=== PATIENT | male | born 1960 | race American Indian/Alaskan Native ===

== ENCOUNTER 2016-08-25 09:45 | Emergency (ER) | payer MEDICARE ==
[2016-08-25 11:07] LABS: Hematocrit 32.2 % (35.5-45.6); Hemoglobin 10.2 gm/dl (11.8-15.2); Mean Corpuscular HGB Conc 32 % (32-34); Mean Corpuscular Hemoglobin 31 pg (28-32); Mean Corpuscular Volume 96 fl (84-94); Platelet Count 212 K/mm3 (140-440); Red Blood Count 3.36 M/mm3 (3.65-5.03); Red Cell Distribution Width 14.9 % (13.2-15.2); White Blood Count 3.7 K/mm3 (4.5-11.0)
[2016-08-25 11:16] LABS: Anion Gap 15 mmol/L; Blood Urea Nitrogen 12 mg/dL (9-20); Calcium 9.6 mg/dL (8.4-10.2); Carbon Dioxide 25 mmol/L (22-30); Chloride 106.5 mmol/L (98-107); Glucose 80 mg/dL (75-100); Potassium 4.2 mmol/L (3.6-5.0); Sodium 142 mmol/L (137-145)
--- NOTE | 2016-08-25 11:26 | Emergency Department Report ---
HPI - General Chief Complaint: Nausea/Vomiting/Diarrhea Time Seen by Provider: 08/25/16 11:16 - HPI HPI: This is a 55-year-old -[place] male who presents to the emergency department by EMS from his [facility] with the concern for diarrhea. Patient has about 1 loose stool or episode of diarrhea per day has been going on for a while. The facility is concerned as the patient has a history of C. difficile in the past that was completely treated. He also has a history of a right kidney transplant. 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 He denies any motor deficits. The patient himself denies any abdominal pain, fever, chest pain, back pain, shortness of breath. No recent travel. ED Past Medical Hx - Past Medical History Previous Medical History?: Yes Hx CVA: Yes Hx Renal Disease: Yes (right kidney transplant) - Surgical History Past Surgical History?: Yes Additional Surgical History: right kidney transplant - Social History Smoking Status: Never Smoker Substance Use Type: None - Medications Home Medications: Home Medications Medication Instructions Recorded Confirmed Last Taken Type Unobtainable 08/25/16 08/25/16 Unknown History ED Review of Systems ROS: Stated complaint: DIARRHEA Other details as noted in HPI Comment: All other systems reviewed and negative Constitutional: denies: chills, fever Eyes: denies: eye pain, eye discharge, vision change ENT: denies: ear pain, throat pain Respiratory: denies: cough, shortness of breath, wheezing Cardiovascular: denies: chest pain, palpitations Gastrointestinal: diarrhea. denies: abdominal pain, nausea, vomiting Genitourinary: denies: urgency, dysuria Musculoskeletal: denies: back pain, joint swelling, arthralgia Skin: denies: rash, lesions Neurological: denies: headache, weakness, paresthesias Physical Exam - Physical Exam Vital Signs: Vital Signs 08/25/16 08/25/16 08/25/16 10:28 10:52 10:54 Temperature 98.4 F Pulse Rate 70 79 Respiratory 18 11 L Rate Blood Pressure 136/74 136/84 O2 Sat by Pulse 100 98 100 Oximetry 08/25/16 10:58 Temperature Pulse Rate Respiratory 11 L Rate Blood Pressure O2 Sat by Pulse 100 Oximetry Physical Exam: GENERAL: The patient is well-developed well-nourished. HEENT: Normocephalic. Atraumatic. Extraocular motions are intact. Patient has moist mucous membranes. Pupils equal reactive to light bilaterally. NECK: Supple. Trachea is midline. CHEST/LUNGS: Clear to auscultation. There is no respiratory distress noted. HEART/CARDIOVASCULAR: Regular. There is no tachycardia. There is no gallop rub or murmur. ABDOMEN: Abdomen is soft, nontender. Patient has normal bowel sounds. There is no abdominal distention. SKIN: Warm and dry. NEURO: The patient is awake, alert. The patient is cooperative. The patient has no focal neurologic deficits. Patient has some aphasia and stuttering speech. MUSCULOSKELETAL: There is no tenderness or deformity. Cap refill less than 2 seconds. There is no evidence of acute injury. ED Course Vital Signs 08/25/16 08/25/16 08/25/16 10:28 10:52 10:54 Temperature 98.4 F Pulse Rate 70 79 Respiratory 18 11 L Rate Blood Pressure 136/74 136/84 O2 Sat by Pulse 100 98 100 Oximetry 08/25/16 10:58 Temperature Pulse Rate Respiratory 11 L Rate Blood Pressure O2 Sat by Pulse 100 Oximetry ED Medical Decision Making - Lab Data Result diagrams: 08/25/16 10:43 08/25/16 10:43 - Medical Decision Making This is a 55-year-old male who was sent in by his [facility] with concern for some diarrhea and has been having for the past few weeks, about once each day, along with a previous history of treated C. difficile. Patient was evaluated in the emergency department and I have low suspicion that the patient currently has C. difficile. The patient's vital signs stable including being afebrile. Patient's labs do not show any leukocytosis. We did obtain a stool sample and there is no white blood cell count in the stool. The C. difficile assay has not yet come back but has been sent to be tested. Patient does not complain of any abdominal discomfort. The rest the patient's labs are mostly unremarkable as well. For all these reasons I feel that the patient is safe for discharge home at this time. The patient was eventually accepted back to the [facility]. I gave discharge instructions that they should continue using contact precautions if they are concerned about possible C. difficile, until the cultures come back. If the culture comes back positive, the facility will be contacted to discuss antibiotics treatments. In the meantime, if the patient's symptoms worsen or if there is any distress he will be returned to the emergency department for further evaluation and treatment. - Differential Diagnosis viral syndrome, C. difficile, Giardia, food poisoning Critical Care Time: No Critical care attestation.: If time is entered above; I have spent that time in minutes in the direct care of this critically ill patient, excluding procedure time. ED Disposition Clinical Impression: Diarrhea Qualifiers: Diarrhea type: unspecified type Qualified Code(s): R19.7 - Diarrhea, unspecified Hypertension Qualifiers: Hypertension type: unspecified secondary hypertension Qualified Code(s): I15.9 - Secondary hypertension, unspecified; I15 - Secondary hypertension Disposition: DISCHARGED TO HOME OR SELFCARE Is pt being admited?: No Condition: Stable Instructions: Chronic Diarrhea (ED), Hypertension (ED) Additional Instructions: Please follow-up with the primary care doctor in the next few days if possible. Return to the emergency department with any acute distress. The patient had a stool sample sent to check for C. difficile but so far all of the labs and vitals do not show a high suspicion for C. difficile. If the stool sample comes back positive, you will be contacted to initiate treatment. If you have concern until that time, I recommend using contact precautions and lots of handwashing with a bacterial soap after dealing with the patient. Referrals: PRIMARY MD NATASHA [Primary Care Provider] - 3-5 Days Time of Disposition: 15:33
[2016-08-25 11:53] LABS: Anisocytosis 1+; Basophils % (Manual) 0 % (0.0-1.8); Blastocytes % (Manual) 0 %; Diff Status Complete; Platelet Estimate Consistent w Auto
[2016-08-25 12:11] LABS: Bilirubin,Urine NEG (Negative); Blood,Urine NEG (Negative); Ketones,Urine NEG (Negative); Leukocyte Esterase,Urine NEG (Negative); Nitrite,Urine NEG (Negative); Protein,Urine <15 mg/dL mg/dL (Negative); Urobilinogen,Urine < 2.0 mg/dL (<2.0); WBC,Urine < 1.0 /HPF (0.0-6.0)
[2016-08-25 14:12] LABS: Alanine Aminotransferase 15 units/L (7-56); Albumin/Globulin Ratio 1.4 %; Alkaline Phosphatase 117 units/L (35-129); Bilirubin,Total 0.4 mg/dL (0.1-1.2); Total Protein 6.9 g/dL (6.3-8.2)
[2016-08-25 14:16] LABS: Bilirubin,Direct < 0.2 mg/dL (0-0.2); Bilirubin,Indirect 0.2 mg/dL
[2016-08-25 16:28] VITALS: BP 147/85
== END 2016-08-25 16:28 | disposition home or self-care (01) ==
LOC: ED 09:45
DX: R19.7 Diarrhea, unspecified (principal); I15.9 Secondary hypertension, unspecified; I63.9 Cerebral infarction, unspecified; Z94.0 Kidney transplant status
CPT/HCPCS: 36415; 80048; 80074; 81001; 85007; 85025; 87045; 87493; 99284

== ENCOUNTER 2016-10-17 10:36 | Emergency (ER) | payer MEDICARE ==
[2016-10-17 11:36] LABS: Hemoglobin 7.6 gm/dl (11.8-15.2); Mean Corpuscular HGB Conc 32 % (32-34); Mean Corpuscular Hemoglobin 30 pg (28-32); Mean Corpuscular Volume 93 fl (84-94); Platelet Count 165 K/mm3 (140-440); Red Blood Count 2.57 M/mm3 (3.65-5.03); Red Cell Distribution Width 14.5 % (13.2-15.2); White Blood Count 4.5 K/mm3 (4.5-11.0)
[2016-10-17 11:52] LABS: Albumin 4.1 g/dL (3.9-5); Albumin/Globulin Ratio 1.6 %; BUN/Creatinine Ratio 12.27; Bilirubin,Total 0.2 mg/dL (0.1-1.2); Calcium 9.7 mg/dL (8.4-10.2); Chloride 109.4 mmol/L (98-107); Potassium 4.7 mmol/L (3.6-5.0); Total Protein 6.7 g/dL (6.3-8.2)
[2016-10-17 12:31] LABS: Anisocytosis 1+; Blastocytes % (Manual) 0 %; Diff Status Complete; Platelet Estimate Consistent w Auto
[2016-10-17] MEDS ORDERED: NACL 0.9% 1000 ML 1,000 ML IV ONE (16:36)
--- NOTE | 2016-10-17 16:44 | Emergency Department Report ---
HPI - General Chief Complaint: Nausea/Vomiting/Diarrhea Time Seen by Provider: 10/17/16 16:24 - HPI HPI: Room 26 The patient is a 55-year-old male presenting with a chief complaint of diarrhea. The patient was sent from his personal residential for evaluation. Patient states for the past 2 weeks his had frequent diarrhea approximately 20 episodes daily. Patient states he initially had nausea and vomiting but this has since resolved. Patient denies abdominal pain or fever. Patient denies chest pain or shortness of breath. Patient denies bright red blood per rectum or melena. Patient denies any recent antibiotic use Location: Gastrointestinal system Duration: 2 weeks Quality: Painless Severity: Severe Modifying factors: [see above] Context: [see above] Mode of transportation: [not driving] ED Past Medical Hx - Past Medical History Hx CVA: Yes (DECEMBER 2014) Hx Diabetes: Yes Hx Renal Disease: Yes (right kidney transplant NOVEMBER 2015 [place]) Additional medical history: BLIND LEFT EYE - Surgical History Additional Surgical History: right kidney transplant. LEFT EYE SURGERY. FISTULA LEFT ARM - Family History Family history: no significant - Social History Smoking Status: Never Smoker Substance Use Type: None - Medications Home Medications: Home Medications Medication Instructions Recorded Confirmed Last Taken Type Famotidine 20 mg PO DAILY 10/17/16 10/17/16 Unknown History Lovastatin [Altoprev] 20 mg PO QAM 10/17/16 10/17/16 Unknown History Mycophenolate [Cellcept] 1,000 mg PO BID 10/17/16 10/17/16 Unknown History NIFEdipine [Nifedipine ER] 60 mg PO BID 10/17/16 10/17/16 Unknown History Prednisone [predniSONE (Oleg) ER 5 mg PO QDAY 10/17/16 10/17/16 Unknown History TAB] Tacrolimus [Prograf] 3 mg PO BID 10/17/16 10/17/16 Unknown History Tamsulosin [Flomax] 0.4 mg PO QDAY 10/17/16 10/17/16 Unknown History glipiZIDE [glipiZIDE ER] 5 mg PO QAM 10/17/16 10/17/16 Unknown History ED Review of Systems ROS: Stated complaint: ABD PAIN,DIARRHEA Other details as noted in HPI Comment: All other systems reviewed and negative Constitutional: denies: chills, fever Eyes: denies: eye pain, eye discharge, vision change ENT: denies: ear pain, throat pain Respiratory: denies: cough, shortness of breath, wheezing Cardiovascular: denies: chest pain, palpitations Endocrine: no symptoms reported Gastrointestinal: nausea, vomiting, diarrhea. denies: abdominal pain, constipation Genitourinary: denies: urgency, dysuria Musculoskeletal: denies: back pain, joint swelling, arthralgia Skin: denies: rash, lesions Neurological: denies: headache, weakness, paresthesias Psychiatric: denies: anxiety, depression Hematological/Lymphatic: denies: easy bleeding, easy bruising Physical Exam - Physical Exam Vital Signs: Vital Signs 10/17/16 10/17/16 11:05 14:35 Temperature 97.9 F Pulse Rate 76 82 Respiratory 17 18 Rate Blood Pressure 99/64 Blood Pressure 116/70 [Right] O2 Sat by Pulse 96 96 Oximetry Physical Exam: GENERAL: The patient is well-developed well-nourished male sitting on stretcher not appearing to be in acute distress. [] HEENT: Normocephalic. Atraumatic. Extraocular motions are intact. NECK: Supple. Trachea midline CHEST/LUNGS: Clear to auscultation. There is no respiratory distress noted. HEART/CARDIOVASCULAR: Regular. There is no tachycardia. There is no gallop rub or murmur. ABDOMEN: Abdomen is soft, nontender. Patient has normal bowel sounds. There is no abdominal distention. SKIN: There is no rash. There is no edema. There is no diaphoresis. NEURO: The patient is awake, alert, and oriented. The patient is cooperative. MUSCULOSKELETAL: There is no evidence of acute injury. RECTAL: Guaiac-negative brown stool. ED Course Vital Signs 10/17/16 10/17/16 11:05 14:35 Temperature 97.9 F Pulse Rate 76 82 Respiratory 17 18 Rate Blood Pressure 99/64 Blood Pressure 116/70 [Right] O2 Sat by Pulse 96 96 Oximetry - Consultations Consultation #1: 10/17/16 16:35 [facility] transfer line called 10/17/16 16:39 Case discussed with him retransfer line-awaiting call back from transplant nephrology 10/17/16 17:[address] Cee- will accept patient in transfer to [place] ED Medical Decision Making - Lab Data Result diagrams: 10/17/16 11:21 10/17/16 11:21 Laboratory Tests 10/17/16 10/17/16 11:21 11:21 WBC 4.5 RBC 2.57 L Hgb 7.6 L Hct 24.0 L MCV 93 MCH 30 MCHC 32 RDW 14.5 Plt Count 165 Add Manual Diff Complete Total Counted 100 Seg Neuts % (Manual) 72.0 H Band Neutrophils % 1.0 Lymphocytes % (Manual) 16.0 Reactive Lymphs % (Man) 0 Monocytes % (Manual) 6.0 Eosinophils % (Manual) 4.0 Basophils % (Manual) 1.0 Metamyelocytes % 0 Myelocytes % 0 Promyelocytes % 0 Blast Cells % 0 Nucleated RBC % Not Reportable Seg Neutrophils # Man 3.2 Band Neutrophils # 0.0 Lymphocytes # (Manual) 0.7 L Abs React Lymphs (Man) 0.0 Monocytes # (Manual) 0.3 Eosinophils # (Manual) 0.2 Basophils # (Manual) 0.0 Metamyelocytes # 0.0 Myelocytes # 0.0 Promyelocytes # 0.0 Blast Cells # 0.0 WBC Morphology Not Reportable Hypersegmented Neuts Not Reportable Hyposegmented Neuts Not Reportable Hypogranular Neuts Not Reportable Smudge Cells Not Reportable Toxic Granulation Not Reportable Toxic Vacuolation Not Reportable Dohle Bodies Not Reportable Pelger-Huet Anomaly Not Reportable Rene Rods Not Reportable Platelet Estimate Consistent w auto Clumped Platelets Not Reportable Plt Clumps, EDTA Not Reportable Large Platelets Not Reportable Giant Platelets Not Reportable Platelet Satelliting Not Reportable Plt Morphology Comment Not Reportable RBC Morphology Not Reportable Dimorphic RBCs Not Reportable Polychromasia Not Reportable Hypochromasia Not Reportable Poikilocytosis Not Reportable Anisocytosis 1+ Microcytosis Not Reportable Macrocytosis Not Reportable Spherocytes Not Reportable Pappenheimer Bodies Not Reportable Sickle Cells Not Reportable Target Cells Not Reportable Tear Drop Cells Not Reportable Ovalocytes Not Reportable Helmet Cells Not Reportable Rosen[place] Bodies Not Reportable [place] Rings Not Reportable Agustin Cells Not Reportable Bite Cells Not Reportable Crenated Cell Not Reportable Elliptocytes Not Reportable Acanthocytes (Spur) Not Reportable Rouleaux Not Reportable Hemoglobin C Crystals Not Reportable Schistocytes Not Reportable Malaria parasites Not Reportable Adelso Bodies Not Reportable Hem Pathologist Commnt No Sodium 138 Potassium 4.7 Chloride 109.4 H Carbon Dioxide 16 L Anion Gap 17 BUN 27 H Creatinine 2.2 H Estimated GFR 38 BUN/Creatinine Ratio 12.27 Glucose 113 H Calcium 9.7 Total Bilirubin 0.20 AST 7 ALT 6 L Alkaline Phosphatase 164 H Total Protein 6.7 Albumin 4.1 Albumin/Globulin Ratio 1.6 Lipase 39 - Differential Diagnosis acute renal failure, dehydration, anemia, GI bleed Critical care attestation.: If time is entered above; I have spent that time in minutes in the direct care of this critically ill patient, excluding procedure time. ED Disposition Clinical Impression: Acute kidney injury, Anemia, Dehydration, Diarrhea Disposition: DC/TX ANOTHER TYPE HEALTHCARE Is pt being admited?: No Does the pt Need Aspirin: No Condition: Fair Referrals: PRIMARY CAREMD [Primary Care Provider] - 3-5 Days Time of Disposition: 17:23 (awaiting transport)
[2016-10-17 18:04] VITALS: BP 115/76
== END 2016-10-17 21:04 | disposition other institution (70) ==
LOC: ED 10:36
DX: S37.009A Unspecified injury of unspecified kidney, initial encounter (principal); D64.9 Anemia, unspecified; E86.0 Dehydration; R19.7 Diarrhea, unspecified; E11.9 Type 2 diabetes mellitus without complications; X58.XXXA Exposure to other specified factors, initial encounter; Y93.89 Activity, other specified; Y92.89 Other specified places as the place of occurrence of the external cause; Y99.8 Other external cause status; Z86.73 Personal history of transient ischemic attack (TIA), and cerebral infarction without residual deficits; Z98.890 Other specified postprocedural states
CPT/HCPCS: 36415; 80053; 82271; 83690; 85007; 85025; 96360; 96361; 99285; J7030